=== PATIENT | male | born 1960 | race African-American/Black ===

== ENCOUNTER 2018-09-13 14:06 | Inpatient (IN) | payer OTHER ==
[2018-09-13 14:15] VITALS: BMI 25.4
--- NOTE | 2018-09-13 17:58 | HP ---
"COWS - Scale Resting Pulse: 0= [place] 80 or Below Sweatin=Flushed/Facial Moisture Restless Observation: 0= Sits Still Pupil Size: 1= Pupils >than Normal (Pupils = 4 mm) Bone or Joint Aches: 1= Mild Discomfort Runny Nose/ Eye Tearin= Runny Nose/Eyes GI Upset > 30mins: 0= None Tremor Observation: 2= Slight Tremor Visible Yawning Observation: 0= None Anxiety or Irritability: 1=Feels Anxious/Irritable Goose Flesh Skin: 0=Smooth Skin COWS Score: 9 CIWA Score - Admission Criteria OASAS Guidelines: Admission for Medically Managed Detox: Requires at least one of the followin. CIWA greater than 12 2. Seizures within the past 24 hours 3. Delirium tremens within the past 24 hours 4. Hallucinations within the past 24 hours 5. Acute intervention needed for co occurring medical disorder 6. Acute intervention needed for co occurring psychiatric disorder 7. Severe withdrawal that cannot be handled at a lower level of care (continued vomiting, continued diarrhea, abnormal vital signs) requiring intravenous medication and/or fluids 8. Admission ROS [facility] Chief Complaint: Patient here with withdrawal symptoms. States here for heroin detox. Allergies/Adverse Reactions: Allergies Allergy/AdvReac Type Severity Reaction Status Date / Time No Known Allergies Allergy Verified 09/13/18 15:24 History of Present Illness: Here for opiate detox. Nicotine use began at age 16. Heroin use began at age 18. Intranasal. Illicit Suboxone use began at age 58 . Denies cocaine use - despite its' presence in urine tox. States stopped drinking after last detox in April. Patient states took a Suboxone earlier today which made him very ill. Denies seizures, blackouts, overdoses. Denies significant PMH/PSH. Longest length of sobriety 1-2 years. Search Terms: [place] Rob, 1960 Search Date: 09/13/2018 05:50:59 PM The Drug Utilization Report below displays all of the controlled substance prescriptions, if any, that your patient has filled in the last twelve months. The information displayed on this report is compiled from pharmacy submissions to the Department, and accurately reflects the information as submitted by the pharmacies. This report was requested by: Peyton Vidales | Reference #: [id number] There are no results for the search terms that you entered. Exam Limitations: No Limitations - Ebola screening Have you traveled outside of the country in the last 21 days: No Have you had contact with anyone from an Ebola affected area: No Have you been sick,other than usual withdrawal symptoms: No Do you have a fever: No - Review of Systems Constitutional: Chills, Diaphoresis EENT: reports: Nose Congestion Respiratory: reports: No Symptoms reported Cardiac: reports: No Symptoms Reported, Other (Previous EKG abnormal, will repeat) GI: reports: No Symptoms Reported : reports: No Symptoms Reported Musculoskeletal: reports: Other ((R) leg achyness r/t withdrawal) Integumentary: reports: No Symptoms Reported Neuro: reports: No Symptoms reported Endocrine: reports: No Symptoms Reported Hematology: reports: No Symptoms Reported Psychiatric: reports: Judgement Intact, Orientated x3, Agitated, Anxious Patient History - Patient Medical History Hx Anemia: No Hx Asthma: No Hx Chronic Obstructive Pulmonary Disease (COPD): No Hx Cancer: No Hx Cardiac Disorders: No Hx Congestive Heart Failure: No Hx Hypertension: No Hx Hypercholesterolemia: No Hx Pacemaker: No HX Cerebrovascular Accident: No Hx Seizures: No Hx Dementia: No Hx Diabetes: No Hx Gastrointestinal Disorders: No Hx Liver Disease: No Hx Genitourinary Disorders: No Hx Sexually Transmitted Disorders: No Hx Renal Disease (ESRD): No Hx Thyroid Disease: No Hx Human Immunodeficiency Virus (HIV): No (NEGATIVE HX) Hx Hepatitis C: No Hx Depression: No Hx Suicide Attempt: No Hx Bipolar Disorder: No Hx Schizophrenia: No - Patient Surgical History Past Surgical History: Yes Hx Neurologic Surgery: No Hx Cataract Extraction: No Hx Cardiac Surgery: No Hx Lung Surgery: No Hx Breast Surgery: No Hx Breast Biopsy: No Hx Abdominal Surgery: No Hx Appendectomy: No Hx Cholecystectomy: No Hx Genitourinary Surgery: No Hx Section: No Hx Orthopedic Surgery: Yes (left elbow fx) Anesthesia Reaction: No - PPD History Previous Implant?: Yes Documented Results: Negative w/proof Implanted On Prior R Admission?: Yes Date: 05/09/18 Results: 0 mm PPD to be Administered?: No - Smoking Cessation Smoking history: Current every day smoker Have you smoked in the past 12 months: Yes Aproximately how many cigarettes per day: 10 Cigars Per Day: 0 Hx Chewing Tobacco Use: No Initiated information on smoking cessation: Yes 'Breaking Loose' booklet given: 09/13/18 - Substance & Tx. History Hx Alcohol Use: No Hx Substance Use: Yes Substance Use Type: Heroin, Opiates (illicit suboxone) Hx Substance Use Treatment: Yes (detox, rehab, community support) - Substances Abused Heroin Route: Inhalation Frequency: Daily Amount used: 10 bags Age of first use: 18 Date of Last Use: 09/13/18 Suboxone Route: SL Frequency: 1-3 times last 30 days Amount used: 8 mg. Age of first use: 58 Date of Last Use: 09/13/18 Family Disease History - Family Disease History Family Disease History: Other: Mother (htn ) Admission Physical Exam S - Vital Signs Vital Signs: Vital Signs - 24 hr 09/13/18 14:08 Temperature 96.9 F L Pulse Rate 74 Respiratory 18 Rate Blood Pressure 150/80 - Physical General Appearance: Yes: Mild Distress, Tremorous, Irritable, Sweating, Anxious HEENTM: Yes: EOMI (Jerking movements of eyes upon (L) and (R) lateral gaze), Hearing grossly Normal, Normocephalic, Normal Voice, CORNELIA (Pupils = 4 mm), Pharynx Normal (Thick, whitish mucous membrane), Other (Perforated nasal septum) Respiratory: Yes: Chest Non-Tender, Lungs Clear, Normal Breath Sounds, No Respiratory Distress Neck: Yes: No masses,lesions,Nodules, Supple Breast: Yes: Breast Exam Deferred Cardiology: Yes: Regular Rhythm, Regular Rate, S1, S2 Abdominal: Yes: Non Tender, Soft, Increased Bowel Sounds, Protuberent ( Increased abdominal adiposity) Genitourinary: Yes: Within Normal Limits Back: Yes: Normal Inspection Musculoskeletal: Yes: full range of Motion, Gait Steady Extremities: Yes: Normal Capillary Refill, Normal Inspection, Normal Range of Motion, Tremors Neurological: Yes: Fully Oriented, Alert, Motor Strength 5/5, Normal Mood/Affect , Other (Jerking movements of eyes upon (L) and (R) lateral gaze) Integumentary: Yes: Normal Color, Dry (Decreased skin turgor), Warm Lymphatic: Yes: Within Normal Limits - Diagnostic (1) Perforated nasal septum Current Visit: Yes Status: Chronic (2) Nicotine dependence Current Visit: Yes Status: Chronic Qualifiers: Nicotine product type: cigarettes Substance use status: uncomplicated Qualified Code(s): F17.210 - Nicotine dependence, cigarettes, uncomplicated (3) Opioid dependence with withdrawal Current Visit: Yes Status: Acute (4) Dehydration Current Visit: Yes Status: Acute (5) Nystagmus Current Visit: Yes Status: Acute Cleared for Admission [facility] - Detox or Rehab [facility] Level of Care: Medically Supervised Detox Regimen/Protocol: Methadone [facility] Breath Alcohol Content Breath Alcohol Content: 0 Urine Drug Screen - Results Drug Screen Negative: No Urine Drug Screen Results: KAT-Cocaine, OPI-Opiates, FEN-Fentanyl, BUP-Suboxone"
[2018-09-13] MEDS ORDERED: MAG HYDROX/AL HYDROX/SIMETH 30 ML UNIT-DOSE CUP PO PRN (18:53)
[2018-09-13] MEDS ORDERED: LOPERAMIDE HCL 2 MG CAPSULE PO PRN (18:53)
[2018-09-13] MEDS ORDERED: MENTHOL/PHENOL 1 EACH UD MM PRN (18:53)
[2018-09-13] MEDS ORDERED: METHADONE HCL 10 MG TABLET (FOR DETOX USE ONLY) PO ONE ×2 (18:53→23:00)
[2018-09-13] MEDS ORDERED: NICOTINE POLACRILEX 2 MG GUM BUC PRN (18:53)
[2018-09-13] MEDS ORDERED: ACETAMINOPHEN 325 MG TABLET (FP) PO PRN (18:53)
[2018-09-13] MEDS ORDERED: MAGNESIUM HYDROX 2400MG/30ML ORAL SUSPENSION 30 ML CUP PO PRN (18:53)
[2018-09-13] MEDS ORDERED: IBUPROFEN 400 MG TABLET (FP) PO PRN (18:53)
[2018-09-13] MEDS ORDERED: MAGNESIUM CITRATE 300 ML BOTTLE PO PRN (18:53)
[2018-09-13] MEDS: diazePAM 5 MG TABLET PO PRN (20:02)
[2018-09-13] MEDS ORDERED: MELATONIN 5 MG TABLETS PO PRN (22:00)
[2018-09-13] MEDS: THIAMINE HCL 100 MG TABLET (FP) PO SCH (22:37)
[2018-09-13 22:49] LABS: URINE APPEARANCE CLOUDY; URINE BILIRUBIN NEGATIVE (<2.0 mg/dL); URINE COLOR YELLOW; URINE GLUCOSE (UA) NEGATIVE (NEGATIVE); URINE KETONE NEGATIVE (NEGATIVE); URINE LEUK ESTERASE NEGATIVE (NEGATIVE); URINE NITRITE NEGATIVE (NEGATIVE); URINE PROTEIN 1+ (NEGATIVE); URINE UROBILINOGEN NEGATIVE mg/dL (0.2-1.0)
[2018-09-13 23:06] LABS: CALCIUM OXALATE CRYSTALS MODERATE /hpf (NONE SEEN); EPI CELLS RARE /HPF (FEW); URINE MUCUS MODERATE
--- NOTE | 2018-09-14 09:36 | EKG ---
Test Reason : Blood Pressure : / mmHG Vent. Rate : 066 BPM Atrial Rate : 066 BPM P-R Int : 220 ms QRS Dur : 088 ms QT Int : 384 ms P-R-T Axes : 062 059 063 degrees QTc Int : 402 ms SINUS RHYTHM WITH 1ST DEGREE A-V BLOCK OTHERWISE NORMAL ECG WHEN COMPARED WITH ECG OF 07-MAY-2018 14:34, NO SIGNIFICANT CHANGE WAS FOUND Confirmed by LUIS MACK, NATHAN ([id number]) on 09/14/2018 9:36:15 AM Referred By: Confirmed By:NATHAN SMITH MD
[2018-09-14] MEDS ORDERED: METHADONE HCL 10 MG TABLET (FOR DETOX USE ONLY) PO ONE (10:00)
[2018-09-14] MEDS: NICOTINE 14 MG/24 HOURS TOPICAL PATCH TD SCH (10:08)
[2018-09-14] MEDS: PRENATAL VITAMINS W/ FOLIC ACID TABLET (FP) PO SCH (10:08)
--- NOTE | 2018-09-14 10:16 | PN ---
BHS COWS - Scale Resting Pulse: 1= [place] 81-100 Sweatin=Flushed/Facial Moisture Restless Observation: 1= Difficult to Sit Still Pupil Size: 0= Normal to Room Light Bone or Joint Aches: 1= Mild Discomfort Runny Nose/ Eye Tearin= None GI Upset > 30mins: 0= None Tremor Observation of Outstretched Hands: 2= Slight Tremor Visible Yawning Observation: 2= >3x During Session Anxiety or Irritability: 2=Irritable/Anxious Goose Flesh Skin: 0=Smooth Skin COWS Score: 11 S Progress Note (SOAP) Subjective: interrupted sleep sweats anxiety agitation Objective: 09/14/18 10:29 Vital Signs Temperature 98.6 F 09/14/18 09:08 Pulse Rate 86 09/14/18 09:08 Respiratory Rate 18 09/14/18 09:08 Blood Pressure 151/95 09/14/18 09:08 O2 Sat by Pulse Oximetry (%) Laboratory Tests 09/13/18 14:07 Urine Color Yellow Urine Appearance Cloudy Urine pH 5.0 Ur Specific [place] 1.031 Urine Protein 1+ H Urine Glucose (UA) Negative Urine Ketones Negative Urine Blood Negative Urine Nitrite Negative Urine Bilirubin Negative Urine Urobilinogen Negative Ur Leukocyte Esterase Negative Urine WBC (Auto) None Urine RBC (Auto) <1 Ur Epithelial Cells Rare Calcium Oxalate Crystal Moderate Urine Mucus Moderate labs pending [id number] ambulating no acute distress Assessment: 09/14/18 10:29 withdrawal sx Plan: continue detox increase fluids labs pending
[2018-09-14 10:42] LABS: HEMATOCRIT 44.7 % (35.4-49); HEMOGLOBIN 14.7 GM/dL (11.7-16.9); MCH 27.4 pg (25.7-33.7); MCHC 32.9 g/dl (32.0-35.9); MEAN CELL VOLUME 83.3 fl (80-96); MEAN PLT VOLUME 9.3 fl (7.5-11.1); PLATELET COUNT 255 K/MM3 (134-434); RBC 5.36 M/mm3 (4.00-5.60); RDW 14.8 % (11.9-15.9); WHITE BLOOD COUNT 8.7 K/mm3 (4.0-10.0)
[2018-09-14 11:06] LABS: ALBUMIN 3.8 g/dl (3.4-5.0); ALK PHOS 104 U/L (45-117); ANION GAP 8 MMOL/L (8-16); BILIRUBIN,TOTAL 1.3 mg/dL (0.2-1); BLOOD UREA NITROGEN 13 mg/dL (7-18); CHLORIDE 105 mmol/L (98-107); CO2 27 mmol/L (21-32); CREATININE 1.1 mg/dL (0.55-1.3); GLUCOSE,RANDOM 87 mg/dL (74-106); POTASSIUM 3.9 mmol/L (3.5-5.1); SGOT/AST 24 U/L (15-37); SGPT/ALT 29 U/L (13-61); SODIUM 140 mmol/L (136-145); TOT PROT 6.8 g/dl (6.4-8.2)
[2018-09-14] MEDS: THIAMINE HCL 100 MG TABLET (FP) PO SCH (22:02)
[2018-09-14] MEDS: diazePAM 5 MG TABLET PO PRN (22:02)
[2018-09-15 06:12] VITALS: PULSE 55
[2018-09-15 09:27] VITALS: BP 124/84; TEMP 97.9
[2018-09-15] MEDS ORDERED: METHADONE HCL 5 MG TABLET (FOR DETOX USE ONLY) PO ONE (10:00)
--- NOTE | 2018-09-15 10:19 | PN ---
BHS COWS - Scale Resting Pulse: 0= [place] 80 or Below Sweatin= Chills/Flushing Restless Observation: 0= Sits Still Pupil Size: 1= Pupils >than Normal Bone or Joint Aches: 2= Severe Diffuse Aches Runny Nose/ Eye Tearin= Runny Nose/Eyes GI Upset > 30mins: 0= None Tremor Observation of Outstretched Hands: 0= None Yawning Observation: 1= 1-2x During Session Anxiety or Irritability: 1=Feels Anxious/Irritable Goose Flesh Skin: 0=Smooth Skin COWS Score: 8 BHS Progress Note (SOAP) Subjective: PATIENT C/O BODY ACHES, RUNNY NOSE, SLEEP DISTURBANCE AND CHILLS. Objective: 09/15/18 10:15 Vital Signs Temperature 97.9 F 09/15/18 09:26 Pulse Rate 55 L 09/15/18 09:26 Respiratory Rate 18 09/15/18 09:26 Blood Pressure 124/84 09/15/18 09:26 O2 Sat by Pulse Oximetry (%) Vital Signs Temperature 97.9 F 09/15/18 09:26 Pulse Rate 55 L 09/15/18 09:26 Respiratory Rate 18 09/15/18 09:26 Blood Pressure 124/84 09/15/18 09:26 O2 Sat by Pulse Oximetry (%) Laboratory Tests 09/13/18 09/14/18 09/14/18 14:07 07:00 07:00 WBC 8.7 RBC 5.36 Hgb 14.7 Hct 44.7 MCV 83.3 MCH 27.4 MCHC 32.9 RDW 14.8 Plt Count 255 MPV 9.3 Sodium 140 Potassium 3.9 Chloride 105 Carbon Dioxide 27 Anion Gap 8 BUN 13 Creatinine 1.1 Creat Clearance w eGFR > 60 Random Glucose 87 Calcium 9.0 Total Bilirubin 1.3 H AST 24 ALT 29 Alkaline Phosphatase 104 Total Protein 6.8 Albumin 3.8 Urine Color Yellow Urine Appearance Cloudy Urine pH 5.0 Ur Specific [place] 1.031 Urine Protein 1+ H Urine Glucose (UA) Negative Urine Ketones Negative Urine Blood Negative Urine Nitrite Negative Urine Bilirubin Negative Urine Urobilinogen Negative Ur Leukocyte Esterase Negative Urine WBC (Auto) None Urine RBC (Auto) <1 Ur Epithelial Cells Rare Calcium Oxalate Crystal Moderate Urine Mucus Moderate RPR Titer 09/14/18 07:00 WBC RBC Hgb Hct MCV MCH MCHC RDW Plt Count MPV Sodium Potassium Chloride Carbon Dioxide Anion Gap BUN Creatinine Creat Clearance w eGFR Random Glucose Calcium Total Bilirubin AST ALT Alkaline Phosphatase Total Protein Albumin Urine Color Urine Appearance Urine pH Ur Specific [place] Urine Protein Urine Glucose (UA) Urine Ketones Urine Blood Urine Nitrite Urine Bilirubin Urine Urobilinogen Ur Leukocyte Esterase Urine WBC (Auto) Urine RBC (Auto) Ur Epithelial Cells Calcium Oxalate Crystal Urine Mucus RPR Titer Nonreactive PE: ALERT AND ORIENTED X 3 SKIN WARM AND DRY EXT FULL ROM, NO VISIBLE TREMORS AMB AD LEON Assessment: 09/15/18 10:17 WITHDRAWAL SX ABNORMAL UA RESULTS +1 PROTEIN Plan: CONTINUE DETOX ENCOURAGE ORAL FLUIDS REPEAT UA URINE SHOWS 1+ PROTEIN CONTINUE TO MONITOR
[2018-09-15] MEDS: PRENATAL VITAMINS W/ FOLIC ACID TABLET (FP) PO SCH (10:23)
[2018-09-15] MEDS: NICOTINE 14 MG/24 HOURS TOPICAL PATCH TD SCH (10:24)
--- NOTE | 2018-09-15 12:33 | DS ---
[facility] Detox Discharge Summary Admission Date: 09/13/18 Discharge Date: 09/15/18 - History Present History: Alcohol Dependence, Opioid Dependence - Physical Exam Results Vital Signs: Vital Signs Temperature 97.9 F 09/15/18 09:26 Pulse Rate 55 L 09/15/18 09:26 Respiratory Rate 18 09/15/18 09:26 Blood Pressure 124/84 09/15/18 09:26 O2 Sat by Pulse Oximetry (%) Pertinent Admission Physical Exam Findings: PATIENT REQUESTED TO SIGN OUT AMA. PATIENT STATED HE WAS GOING TO [place] AND COULD NOT COMPLETE DETOX. PATIENT EXPLAINED RISK FACTORS OR RELAPSE WITH SIGNING OUT BY STAFF WITH NO EFFECT. PATIENT ENCOURAGED TO ATTEND NA AND TO SEEK MEDICAL ATTENTION FOR WORSENING WITHDRAWAL SX. - Medication Discharge Medications: Ambulatory Orders NK [No Known Home Medication] 05/07/18 - Diagnosis (1) Proteinuria Current Visit: Yes Status: Acute Qualifiers: Proteinuria type: unspecified Qualified Code(s): R80.9 - Proteinuria, unspecified (2) Alcohol dependence Current Visit: Yes Status: Acute (3) Opioid dependence with withdrawal Current Visit: Yes Status: Acute - AMA Did Patient Leave Against Medical Advice: Yes
[2018-09-16] MEDS ORDERED: METHADONE HCL 5 MG TABLET (FOR DETOX USE ONLY) PO ONE (10:00)
[2018-09-17] MEDS ORDERED: METHADONE HCL 10 MG TABLET (FOR DETOX USE ONLY) PO ONE (10:00)
[2018-09-18] MEDS ORDERED: METHADONE HCL 5 MG TABLET (FOR DETOX USE ONLY) PO ONE (06:00)
== END 2018-09-15 11:04 | disposition left against medical advice (07) | DRG 770 ==
LOC: YASAS 14:06 → Y6N 17:27
PROC: HZ2ZZZZ Detoxification Services for Substance Abuse Treatment (ICD-10-PCS; principal; 2018-09-13)
DX: F11.23 Opioid dependence with withdrawal (principal); F10.20 Alcohol dependence, uncomplicated; F17.210 Nicotine dependence, cigarettes, uncomplicated; E86.0 Dehydration; H55.00 Unspecified nystagmus; J34.89 Other specified disorders of nose and nasal sinuses; R80.9 Proteinuria, unspecified
CPT/HCPCS: 36415; 80053; 81003; 81015; 85027; 86593; 93005; 93010